=== PATIENT | male | born 1985 | race Caucasian/White ===

== ENCOUNTER 2024-05-11 10:59 | Emergency (ER) | payer SELFPAY ==
[~2024-05-11] VITALS: Ht 162.6 cm; Wt 90.7 kg
[2024-05-11 11:09] VITALS: BP 138/85; PULSE 79; RESP 16; TEMP 98.4; O2SAT 98
[2024-05-11] MEDS ORDERED: CARB15DR61 OT (12:53)
[2024-05-11 13:07] VITALS: BP 134/78; PULSE 81; RESP 14; TEMP 98.2; O2SAT 97
== END 2024-05-11 13:04 | disposition home or self-care (01) ==
LOC: MED 10:59
DX: H61.23 Impacted cerumen, bilateral (principal); Z79.899 Other long term (current) drug therapy
CPT/HCPCS: 99282